=== PATIENT | female | born 1990 | race Caucasian/White ===

== ENCOUNTER 2017-09-06 06:29 | Day surgery (SDC) | payer BC ==
[2017-09-04 14:04] LABS: BASOPHILS # (AUTO) 0.1 X10'3 (0-0.2); BASOPHILS % (AUTO) 0.7 % (0-1); EOSINOPHILS # (AUTO) 0.2 X10'3 (0-0.9); EOSINOPHILS % (AUTO) 1.7 % (0-6); LYMPHOCYTES # (AUTO) 2.4 X10'3 (1.1-4.8); MEAN CORPUSCULAR HEMOGLOBIN 24.6 PG (27.0-31.0); MEAN CORPUSCULAR HGB CONC 33.4 % (33.0-36.5); MEAN CORPUSCULAR VOLUME 73.7 FL (78-98); MEAN PLATELET VOLUME 8.2 FL (7.4-10.4); MONOCYTES # (AUTO) 0.7 X10'3 (0-0.9); MONOCYTES % (AUTO) 5.9 % (2-12); NEUTROPHILS # (AUTO) 8.1 X10'3 (1.8-7.7); NEUTROPHILS % (AUTO) 70.7 % (42-75); PRE OP PLATELET COUNT 371 X10'3 (140-440); RED BLOOD COUNT 5.29 X10'6 (4.20-5.60); RED CELL DISTRIBUTION WIDTH 16.8 % (11.5-14.5)
[2017-09-04 14:40] LABS: HCG SERUM QL NEGATIVE
[2017-09-06] VITALS (9 sets, daily range): BP systolic 95–134; BP diastolic 62–83
[~2017-09-06] VITALS: Ht 157.5 cm; Wt 104.5 kg
[~2017-09-06 06:29] MED LIST: JUICE PLUS VITAMINS PO; ceFAZolin inj. 2,000 MG in normal saline 100ml IV soln 100 ML IV ONE; famotidine 20mg tablet PO ONE; ringers solution, lacted 1,000 ML IV SCH
[2017-09-06] MEDS ORDERED: bupivacaine (with preservative) 5 mg/ml inj. 50ml ONE (06:43)
[2017-09-06] MEDS ORDERED: ondansetron/PF 4mg/2ml inj IV PRN (07:40)
[2017-09-06] MEDS ORDERED: morphine 4 MG/ML inj SYRINge IV PRN ×2 (07:40)
[2017-09-06] MEDS ORDERED: meperidine/PF 25mg/ml syringe IV PRN ×2 (07:40)
[2017-09-06] MEDS ORDERED: ringers solution, lacted 1,000 ML IV SCH (07:40)
[2017-09-06] MEDS ORDERED: proCHLORperazine 10 MG/2 ml inj IV PRN (07:40)
[2017-09-06] MEDS ORDERED: fentaNYL/PF 50MCG/1 ML 2ML syringe ONE (08:25)
[2017-09-06] MEDS ORDERED: midazolam 2 mg/2 ml injection ONE (08:25)
[2017-09-06] MEDS ORDERED: dexamethasone sod phosphate 4mg/ml inj. ONE ×2 (08:30→08:50)
[2017-09-06] MEDS ORDERED: ondansetron/PF 4mg/2ml inj ONE (08:50)
[2017-09-06] MEDS ORDERED: LIDOcaine 2% (20mg/ml) 5ml vial ONE (08:50)
[2017-09-06] MEDS ORDERED: propofol inj 20 ML IV ONE (08:50)
[2017-09-06] MEDS ORDERED: rocuronium 10mg/ml inj IV ONE (08:50)
[2017-09-06] MEDS ORDERED: neostigmine methylsulfate 1 MG/ML 10ml vial ONE (08:50)
[2017-09-06] MEDS ORDERED: glycopyrrolate 0.2mg/ml inj ONE (08:50)
[2017-09-06] MEDS: meperidine/PF 25mg/ml syringe IV PRN ×2 (09:28→10:00)
== END 2017-09-06 10:31 | disposition home or self-care (01) ==
LOC: PAS 06:29
PROVIDERS: ATTEND Obstetrics & Gynecology
DX: Z30.2 Encounter for sterilization (principal); Z30.432 Encounter for removal of intrauterine contraceptive device; N89.8 Other specified noninflammatory disorders of vagina; N93.9 Abnormal uterine and vaginal bleeding, unspecified; Z72.89 Other problems related to lifestyle
CPT/HCPCS: 36415; 58301; 58563; 58670; 84703; 85025; A4355; A6258; A6402; J0690; J1100; J2001; J2175; J2250; J2405; J2704; J2710; J3010; J3490; J7030; J7120; A7000